=== PATIENT | male | born 1990 | race Caucasian/White ===

== ENCOUNTER 2018-08-13 16:53 | Emergency (ER) | payer BC ==
[~2018-08-13] VITALS: Ht 152.4 cm; Wt 77.1 kg
[2018-08-13] MEDS ORDERED: ALLERGY RELIEF10 M3 PO (20:18)
== END 2018-08-13 20:46 ==
LOC: ER 16:53
DX: R09.89 Other specified symptoms and signs involving the circulatory and respiratory systems (principal); H10.13 Acute atopic conjunctivitis, bilateral; J30.2 Other seasonal allergic rhinitis